=== PATIENT | male | born 1950 | race Caucasian/White ===

== ENCOUNTER 2018-07-26 15:54 | Inpatient (IN) | payer OTHER ==
[2018-07-26 19:36] LABS: ADD MAN DIFF? NO
[2018-07-26 19:38] LABS: WHITE BLOOD COUNT 10.6 10^3/ul (4.8-10.8)
[2018-07-26 19:38] LABS: BASOPHIL # 0.1 10^3/ul (0.0-0.1); BASOPHILS % 0.8 % (0.0-2.0); EOSINOPHILS # 0.2 10^3/ul (0.0-0.5); EOSINOPHILS % 1.6 % (0.0-7.0); HEMATOCRIT 36.1 % (42.0-52.0); HEMOGLOBIN 11.9 g/dl (14.0-18.0); LYMPHOCYTES # 2.2 10^3/ul (0.8-2.9); LYMPHOCYTES % 20.3 % (15.0-51.0); MEAN CORPUSCULAR HEMOGLOBIN 28.9 pg (29.0-33.0); MEAN CORPUSCULAR VOLUME 87.6 fl (82.0-101.0); MEAN PLATELET VOLUME 9.5 fl (7.4-10.4); MONOCYTE # 0.8 10^3/ul (0.3-0.9); MONOCYTES % 7.5 % (0.0-11.0); NEUTROPHIL # 7.4 10^3/ul (1.6-7.5); NEUTROPHILS % 69.3 % (39.0-77.0); PLATELET COUNT 342 10^3/UL (140-415); RED BLOOD COUNT 4.12 10^6/ul (4.70-6.10); RED CELL DISTRIBUTION WIDTH 12.9 % (11.5-14.5)
[2018-07-26] MEDS: NITROGLYCERIN (SL) 0.4 MG TAB SL (19:38)
[2018-07-26] MEDS: ASPIRIN 325 MG TAB PO (19:38)
[2018-07-26 19:51] LABS: PROTIME 14.3 Sec (11.9-14.9); PT RATIO 1.1
[2018-07-26 19:52] LABS: PARTIAL THROMBOPLASTIN TIME 30.7 Sec (23.0-35.0)
[2018-07-26 19:54] LABS: ALANINE AMINOTRANSFERASE 45 IU/L (13-69); ALBUMIN 3.8 g/dl (3.3-4.9); ALBUMIN/GLOBULIN RATIO 1.22; ALKALINE PHOSPHATASE 99 IU/L (42-121); ANION GAP 8 (5-13); ASPARTATE AMINO TRANSFERASE 33 IU/L (15-46); BILIRUBIN,INDIRECT 0.2 mg/dl (0-1.1); BILIRUBIN,TOTAL 0.2 mg/dl (0.2-1.3); BLOOD UREA NITROGEN 26 mg/dl (7-20); CALCIUM 9.1 mg/dl (8.4-10.2); CARBON DIOXIDE 30 mmol/L (21-31); CHLORIDE 100 mmol/L (97-110); CREATINE KINASE 163 IU/L (23-200); CREATININE 1.26 mg/dl (0.61-1.24); Estimated GFR 57 mL/min (>60); GLUCOSE 139 mg/dl (70-220); POTASSIUM 4.9 mmol/L (3.5-5.1); SODIUM 138 mmol/L (135-144); TOTAL PROTEIN 6.9 g/dl (6.1-8.1)
[2018-07-26 20:06] LABS: B-TYPE NATRIURETIC PEPTIDE 11000 PG/ML (0-125); CK INDEX 0.9; CK-MB 1.48 ng/ml (0.0-2.4)
[2018-07-26 20:10] LABS: TROPONIN-I 0.897 ng/ml (0.000-0.120)
[2018-07-26] MEDS: FUROSEMIDE 40 MG INJ IV (20:54)
[2018-07-26] MEDS: ALBUTEROL 0.5% (NEB) 2.5 MG/0.5 ML AMP NEB (20:59)
[2018-07-26] MEDS: IPRATROPIUM (NEB) 0.5 MG/2.5 ML AMP NEB (20:59)
[2018-07-26] MEDS ORDERED: ACETAMINOPHEN 325 MG TAB PO ×2 (21:00→21:30)
[2018-07-26] MEDS ORDERED: ONDANSETRON 4 MG INJ IV (21:00)
[2018-07-26] MEDS ORDERED: ONDANSETRON 4 MG TAB PO (21:30)
[2018-07-26] MEDS ORDERED: BISACODYL (EC) 5 MG TAB PO (21:30)
[2018-07-26] MEDS ORDERED: NITROGLYCERIN (SL) 0.4 MG TAB SL (21:30)
[2018-07-26] MEDS ORDERED: NACL 0.9% 3 ML SYG IV (21:30)
[2018-07-27 01:09] LABS: CREATINE KINASE 131 IU/L (23-200)
[2018-07-27 01:22] LABS: CK INDEX 0.8
[2018-07-27 01:23] LABS: TROPONIN-I 0.897 ng/ml (0.000-0.120)
[2018-07-27 06:19] LABS: ADD MAN DIFF? NO; BASOPHIL # 0.1 10^3/ul (0.0-0.1); BASOPHILS % 0.9 % (0.0-2.0); EOSINOPHILS # 0.4 10^3/ul (0.0-0.5); EOSINOPHILS % 3.9 % (0.0-7.0); HEMATOCRIT 32.8 % (42.0-52.0); HEMOGLOBIN 10.9 g/dl (14.0-18.0); LYMPHOCYTES # 2.2 10^3/ul (0.8-2.9); LYMPHOCYTES % 24.6 % (15.0-51.0); MEAN CORPUSCULAR HEMOGLOBIN 28.8 pg (29.0-33.0); MEAN CORPUSCULAR HGB CONC 33.2 g/dl (32.0-37.0); MEAN CORPUSCULAR VOLUME 86.8 fl (82.0-101.0); MONOCYTE # 0.7 10^3/ul (0.3-0.9); MONOCYTES % 8.2 % (0.0-11.0); NEUTROPHIL # 5.5 10^3/ul (1.6-7.5); NEUTROPHILS % 62.1 % (39.0-77.0); PLATELET COUNT 337 10^3/UL (140-415); RED BLOOD COUNT 3.78 10^6/ul (4.70-6.10); RED CELL DISTRIBUTION WIDTH 13.1 % (11.5-14.5)
[2018-07-27 06:19] LABS: WHITE BLOOD COUNT 8.9 10^3/ul (4.8-10.8)
[2018-07-27 06:54] LABS: ALANINE AMINOTRANSFERASE 40 IU/L (13-69); ALBUMIN 3.2 g/dl (3.3-4.9); ALKALINE PHOSPHATASE 71 IU/L (42-121); ANION GAP 1 (5-13); ASPARTATE AMINO TRANSFERASE 24 IU/L (15-46); BILIRUBIN,INDIRECT 0.3 mg/dl (0-1.1); BILIRUBIN,TOTAL 0.3 mg/dl (0.2-1.3); BLOOD UREA NITROGEN 23 mg/dl (7-20); CALCIUM 8.7 mg/dl (8.4-10.2); CARBON DIOXIDE 34 mmol/L (21-31); CHLORIDE 104 mmol/L (97-110); CHOL/HDL RATIO 3.5 RATIO; CHOLESTEROL 89 mg/dl (100-200); CREATINE KINASE 98 IU/L (23-200); CREATININE 1.29 mg/dl (0.61-1.24); Estimated GFR 55 mL/min (>60); GLUCOSE 131 mg/dl (70-220); HDL CHOLESTEROL 25 mg/dl (30-78); LDL CHOLESTEROL,CALCULATED 46 mg/dl; MAGNESIUM 1.9 mg/dl (1.7-2.5); POTASSIUM 4.1 mmol/L (3.5-5.1); SODIUM 139 mmol/L (135-144); TOTAL PROTEIN 6.1 g/dl (6.1-8.1); TRIGLYCERIDES 88 mg/dl (0-149)
[2018-07-27 06:59] LABS: CK INDEX 1.1; CK-MB 1.04 ng/ml (0.0-2.4)
[2018-07-27 08:20] LABS: HEMOGLOBIN A1C 7.4 % (0-5.9)
[2018-07-27] MEDS: FUROSEMIDE 20 MG INJ IV ×2 (09:39→17:28)
[2018-07-27 10:50] LABS: ALBUMIN 3.4 g/dl (3.3-4.9); ANION GAP 7 (5-13); BLOOD UREA NITROGEN 23 mg/dl (7-20); CARBON DIOXIDE 31 mmol/L (21-31); CHLORIDE 101 mmol/L (97-110); GLUCOSE 231 mg/dl (70-220); PHOSPHORUS 4.3 mg/dl (2.5-4.9); POTASSIUM 4.1 mmol/L (3.5-5.1); SODIUM 139 mmol/L (135-144)
[2018-07-27 11:37] LABS: CREATINE KINASE 90 IU/L (23-200)
[2018-07-27 11:55] LABS: CK INDEX 0.9; CK-MB 0.84 ng/ml (0.0-2.4)
[2018-07-27 11:57] LABS: TROPONIN-I 0.707 ng/ml (0.000-0.120)
[2018-07-27] MEDS ORDERED: GLUCOSE GEL 15 GRAM TUBE PO ×2 (13:00)
[2018-07-27] MEDS ORDERED: GLUCOSE GEL 15 GRAM TUBE BUCCAL (13:00)
[2018-07-27] MEDS ORDERED: GLUCAGON 1 MG INJ IM (13:00)
[2018-07-27] MEDS ORDERED: DEXTROSE 50% 50 ML SYRINGE IV ×2 (13:00)
[2018-07-27] MEDS ORDERED: hydrALAzine 20 MG INJ IV (14:00)
[2018-07-27] MEDS: ASPIRIN 81 MG TAB PO (14:20)
[2018-07-27] MEDS: ENOXAPARIN 80 MG/0.8 ML SYG SC (15:07)
[2018-07-27 16:34] LABS: CREATINE KINASE 81 IU/L (23-200)
[2018-07-27 16:39] LABS: ADD UMIC YES; UR ASCORBIC ACID NEGATIVE (NEGATIVE); UR BILIRUBIN (Dip) NEGATIVE (NEGATIVE); UR BLOOD (Dip) NEGATIVE (NEGATIVE); UR CLARITY CLEAR (CLEAR); UR COLOR YELLOW (YELLOW); UR GLUCOSE (Dip) 1+ mg/dL (NEGATIVE); UR KETONES (Dip) NEGATIVE (NEGATIVE); UR LEUKOCYTE ESTERASE (Dip) NEGATIVE Leu/ul (NEGATIVE); UR NITRITE (Dip) NEGATIVE (NEGATIVE); UR RBC 1 /HPF (0-5); UR SPECIFIC GRAVITY (Dip) 1.015 (1.003-1.030); UR TOTAL PROTEIN (Dip) 2+ mg/dl (NEGATIVE); UR UROBILINOGEN (Dip) 1+ mg/dL (NEGATIVE); UR WBC 0 /HPF (0-5)
[2018-07-27 16:46] LABS: CK-MB 0.83 ng/ml (0.0-2.4); TROPONIN-I 0.628 ng/ml (0.000-0.120)
[2018-07-27] MEDS: INSULIN ASPART [NOVOLOG] 3 ML PEN SC ×3 (17:25→21:00)
[2018-07-27] MEDS: ATORVASTATIN 20 MG TAB PO (21:24)
[2018-07-27] MEDS: INSULIN GLARGINE [LANTus] (100 UNITS/ML) SYG SC (21:28)
[2018-07-27 22:27] LABS: CREATINE KINASE 69 IU/L (23-200)
[2018-07-27 22:40] LABS: TROPONIN-I 0.601 ng/ml (0.000-0.120)
[2018-07-28] MEDS: FUROSEMIDE 20 MG INJ IV ×2 (05:43→17:38)
[2018-07-28 06:00] LABS: ADD MAN DIFF? NO
[2018-07-28 06:10] LABS: WHITE BLOOD COUNT 9.7 10^3/ul (4.8-10.8)
[2018-07-28 06:10] LABS: BASOPHIL # 0.1 10^3/ul (0.0-0.1); BASOPHILS % 0.8 % (0.0-2.0); EOSINOPHILS # 0.6 10^3/ul (0.0-0.5); EOSINOPHILS % 5.7 % (0.0-7.0); HEMATOCRIT 34.5 % (42.0-52.0); HEMOGLOBIN 11.5 g/dl (14.0-18.0); LYMPHOCYTES # 2.2 10^3/ul (0.8-2.9); LYMPHOCYTES % 22.3 % (15.0-51.0); MEAN CORPUSCULAR HEMOGLOBIN 29.3 pg (29.0-33.0); MEAN CORPUSCULAR HGB CONC 33.3 g/dl (32.0-37.0); MEAN CORPUSCULAR VOLUME 87.8 fl (82.0-101.0); MONOCYTE # 0.8 10^3/ul (0.3-0.9); MONOCYTES % 8.7 % (0.0-11.0); NEUTROPHILS % 62.2 % (39.0-77.0); PLATELET COUNT 351 10^3/UL (140-415); RED BLOOD COUNT 3.93 10^6/ul (4.70-6.10); RED CELL DISTRIBUTION WIDTH 12.8 % (11.5-14.5)
[2018-07-28 06:51] LABS: ANION GAP 5 (5-13); BLOOD UREA NITROGEN 30 mg/dl (7-20); CALCIUM 9.1 mg/dl (8.4-10.2); CARBON DIOXIDE 32 mmol/L (21-31); CHLORIDE 103 mmol/L (97-110); CREATININE 1.41 mg/dl (0.61-1.24); Estimated GFR 50 mL/min (>60); GLUCOSE 125 mg/dl (70-220); POTASSIUM 4.8 mmol/L (3.5-5.1); SODIUM 140 mmol/L (135-144)
[2018-07-28 07:03] LABS: ALANINE AMINOTRANSFERASE 32 IU/L (13-69); ALBUMIN 3.3 g/dl (3.3-4.9); ALBUMIN/GLOBULIN RATIO 1.13; ALKALINE PHOSPHATASE 80 IU/L (42-121); ANION GAP 6 (5-13); ASPARTATE AMINO TRANSFERASE 17 IU/L (15-46); BILIRUBIN,INDIRECT 0.1 mg/dl (0-1.1); BILIRUBIN,TOTAL 0.1 mg/dl (0.2-1.3); BLOOD UREA NITROGEN 29 mg/dl (7-20); CARBON DIOXIDE 32 mmol/L (21-31); CHLORIDE 102 mmol/L (97-110); CREATININE 1.43 mg/dl (0.61-1.24); Estimated GFR 49 mL/min (>60); GLUCOSE 130 mg/dl (70-220); POTASSIUM 4.4 mmol/L (3.5-5.1); SODIUM 140 mmol/L (135-144); TOTAL PROTEIN 6.2 g/dl (6.1-8.1)
[2018-07-28] MEDS: INSULIN ASPART [NOVOLOG] 3 ML PEN SC ×7 (07:55→20:28)
[2018-07-28] MEDS: ASPIRIN 81 MG TAB PO (08:13)
[2018-07-28] MEDS: DOCUSATE SODIUM 100 MG CAP PO (08:48)
[2018-07-28] MEDS: ENOXAPARIN 80 MG/0.8 ML SYG SC (14:25)
[2018-07-28 19:06] LABS: SODIUM,URINE RANDOM 105 mmol/L (30-90)
[2018-07-28 19:15] LABS: CREATININE,URINE RANDOM 108.54 mg/dl (20-370)
[2018-07-28 19:37] LABS: PROTEIN/CREAT RATIO 2.71 RATIO
[2018-07-28] MEDS: ATORVASTATIN 20 MG TAB PO (20:22)
[2018-07-28] MEDS: INSULIN GLARGINE [LANTus] (100 UNITS/ML) SYG SC (20:28)
[2018-07-29] MEDS: GUAIFENESIN/DM 5ML CUP PO ×2 (01:35→21:39)
[2018-07-29] MEDS: FUROSEMIDE 20 MG INJ IV (06:04)
[2018-07-29 07:15] LABS: ADD MAN DIFF? NO
[2018-07-29 07:26] LABS: BASOPHIL # 0.1 10^3/ul (0.0-0.1); BASOPHILS % 0.8 % (0.0-2.0); EOSINOPHILS # 0.3 10^3/ul (0.0-0.5); EOSINOPHILS % 2.8 % (0.0-7.0); HEMATOCRIT 35.6 % (42.0-52.0); HEMOGLOBIN 11.8 g/dl (14.0-18.0); LYMPHOCYTES # 2.3 10^3/ul (0.8-2.9); LYMPHOCYTES % 21.8 % (15.0-51.0); MEAN CORPUSCULAR HEMOGLOBIN 28.9 pg (29.0-33.0); MEAN CORPUSCULAR HGB CONC 33.1 g/dl (32.0-37.0); NEUTROPHIL # 6.9 10^3/ul (1.6-7.5); PLATELET COUNT 368 10^3/UL (140-415); RED BLOOD COUNT 4.09 10^6/ul (4.70-6.10); RED CELL DISTRIBUTION WIDTH 13.1 % (11.5-14.5)
[2018-07-29 07:26] LABS: WHITE BLOOD COUNT 10.6 10^3/ul (4.8-10.8)
[2018-07-29] MEDS: INSULIN ASPART [NOVOLOG] 3 ML PEN SC ×7 (07:35→20:11)
[2018-07-29 07:52] LABS: ALANINE AMINOTRANSFERASE 26 IU/L (13-69); ALBUMIN 3.4 g/dl (3.3-4.9); ALBUMIN/GLOBULIN RATIO 1.09; ALKALINE PHOSPHATASE 72 IU/L (42-121); ANION GAP 4 (5-13); ASPARTATE AMINO TRANSFERASE 15 IU/L (15-46); BILIRUBIN,INDIRECT 0.3 mg/dl (0-1.1); BILIRUBIN,TOTAL 0.3 mg/dl (0.2-1.3); BLOOD UREA NITROGEN 33 mg/dl (7-20); CALCIUM 8.9 mg/dl (8.4-10.2); CARBON DIOXIDE 31 mmol/L (21-31); CHLORIDE 103 mmol/L (97-110); CREATININE 1.49 mg/dl (0.61-1.24); Estimated GFR 47 mL/min (>60); GLUCOSE 99 mg/dl (70-220); POTASSIUM 3.8 mmol/L (3.5-5.1); SODIUM 138 mmol/L (135-144); TOTAL PROTEIN 6.5 g/dl (6.1-8.1)
[2018-07-29] MEDS: ASPIRIN 81 MG TAB PO (08:07)
[2018-07-29] MEDS: REGADENOSON 0.4 MG/5 ML SYG (10:10)
[2018-07-29] MEDS: ENOXAPARIN 80 MG/0.8 ML SYG SC (13:19)
[2018-07-29 17:17] LABS: RAPID PLASMA REAGIN NONREACTIVE (NR)
[2018-07-29] MEDS: ATORVASTATIN 20 MG TAB PO (20:11)
[2018-07-29] MEDS: INSULIN GLARGINE [LANTus] (100 UNITS/ML) SYG SC (20:18)
[2018-07-30 05:32] LABS: PROTEIN, TOTAL 5.8 g/dL (6.1-8.1)
[2018-07-30 07:13] LABS: ADD MAN DIFF? NO
[2018-07-30 07:15] LABS: BASOPHIL # 0.1 10^3/ul (0.0-0.1); BASOPHILS % 1.1 % (0.0-2.0); EOSINOPHILS # 0.4 10^3/ul (0.0-0.5); EOSINOPHILS % 3.7 % (0.0-7.0); HEMATOCRIT 36.2 % (42.0-52.0); HEMOGLOBIN 11.9 g/dl (14.0-18.0); LYMPHOCYTES # 2.7 10^3/ul (0.8-2.9); LYMPHOCYTES % 26.7 % (15.0-51.0); MEAN CORPUSCULAR HEMOGLOBIN 28.6 pg (29.0-33.0); MEAN CORPUSCULAR HGB CONC 32.9 g/dl (32.0-37.0); MEAN PLATELET VOLUME 10.1 fl (7.4-10.4); MONOCYTES % 9.6 % (0.0-11.0); NEUTROPHIL # 5.8 10^3/ul (1.6-7.5); NEUTROPHILS % 58.5 % (39.0-77.0); PLATELET COUNT 372 10^3/UL (140-415); RED BLOOD COUNT 4.16 10^6/ul (4.70-6.10); RED CELL DISTRIBUTION WIDTH 13.3 % (11.5-14.5)
[2018-07-30 07:15] LABS: WHITE BLOOD COUNT 9.9 10^3/ul (4.8-10.8)
[2018-07-30] MEDS: INSULIN ASPART [NOVOLOG] 3 ML PEN SC ×4 (07:51→11:34)
[2018-07-30 07:53] LABS: ALANINE AMINOTRANSFERASE 30 IU/L (13-69); ALBUMIN 3.2 g/dl (3.3-4.9); ALBUMIN/GLOBULIN RATIO 1.06; ALKALINE PHOSPHATASE 67 IU/L (42-121); ANION GAP 7 (5-13); ASPARTATE AMINO TRANSFERASE 20 IU/L (15-46); BILIRUBIN,INDIRECT 0.3 mg/dl (0-1.1); BILIRUBIN,TOTAL 0.3 mg/dl (0.2-1.3); BLOOD UREA NITROGEN 33 mg/dl (7-20); CALCIUM 8.6 mg/dl (8.4-10.2); CARBON DIOXIDE 29 mmol/L (21-31); CHLORIDE 100 mmol/L (97-110); CREATININE 1.36 mg/dl (0.61-1.24); Estimated GFR 52 mL/min (>60); GLUCOSE 96 mg/dl (70-220); SODIUM 136 mmol/L (135-144); TOTAL PROTEIN 6.2 g/dl (6.1-8.1)
[2018-07-30] MEDS: ASPIRIN 81 MG TAB PO (08:09)
[2018-07-30] MEDS: ENOXAPARIN 80 MG/0.8 ML SYG SC (13:02)
[2018-07-30 14:06] LABS: ANA SCREEN NEGATIVE (NEGATIVE)
[2018-07-30] MEDS: FUROSEMIDE 20 MG TAB PO (15:54)
[2018-07-30 23:24] LABS: ALBUMIN 2.9 g/dL (3.8-4.8); ALPHA-1-GLOBULINS 0.4 g/dL (0.2-0.3); BETA 2 GLOBULINS 0.3 g/dL (0.2-0.5); BETA GLOBULINS 0.3 g/dL (0.4-0.6); GAMMA GLOBULINS 0.9 g/dL (0.8-1.7)
== END 2018-07-30 16:50 | disposition home or self-care (01) | DRG 280 ==
LOC: E/R 15:54 → TEL 20:39
DX: I21.A1 Myocardial infarction type 2 (principal); I50.21 Acute systolic (congestive) heart failure; I13.0 Hypertensive heart and chronic kidney disease with heart failure and stage 1 through stage 4 chronic kidney disease, or unspecified chronic kidney disease; N17.9 Acute kidney failure, unspecified; E11.22 Type 2 diabetes mellitus with diabetic chronic kidney disease; R00.1 Bradycardia, unspecified; E78.5 Hyperlipidemia, unspecified; Z79.4 Long term (current) use of insulin; N18.3 Chronic kidney disease, stage 3 (moderate); E11.21 Type 2 diabetes mellitus with diabetic nephropathy
CPT/HCPCS: 71045; 76775; 78452; 80048; 80053; 80061; 80069; 81001; 81003; 82550; 82553; 82570; 82962; 83036; 83735; 83880; 84155; 84165; 84300; 84484; 85025; 85610; 85730; 86038; 86592; 89190; 90686; 93005; 93017; 93306; 94644; 99291-25